=== PATIENT | female | born 1945 | race Caucasian/White ===

== ENCOUNTER 2017-12-12 09:39 | Day surgery (SDC) | payer MEDICARE, OTHER ==
[~2017-12-12] VITALS: Ht 160 cm; Wt 83.9 kg
[~2017-12-12 09:39] MED LIST: CLOB.05TO TOP; DIAZ5 PO; ELFOLATE7.5 MG PO; ESCI10 PO; GABA300 PO; HYDR1TAB94 PO; Hair, Skin & N1 EACH PO; LAMO100 PO; LIOT5 PO; MELA3 PO; MINO100 PO; NORT10 PO; Prozac20 MG PO; SYNTHROID112 MCG PO; VITAMIN D32000 UNIT PO; ZOLP5 PO
== END 2017-12-12 23:00 | disposition home or self-care (01) ==
LOC: ORSCMMR 09:39
PROVIDERS: Surgery
PROC: 0HBU0ZZ Excision of Left Breast, Open Approach (ICD-10-PCS; principal; 2017-12-12 12:15)
DX: L72.3 Sebaceous cyst (principal); E03.9 Hypothyroidism, unspecified; Z79.899 Other long term (current) drug therapy
CPT/HCPCS: 88304; J0330; J0690; J1100; J2250; J2405; J3010; J7120

== ENCOUNTER 2018-08-14 07:11 | Day surgery (SDC) | payer MEDICARE, OTHER | END 2018-08-14 09:38 | disposition home or self-care (01) | LOC: ORSCSDS 07:11 | PROVIDERS: Surgery | PROC: 0DJD8ZZ Inspection of Lower Intestinal Tract, Via Natural or Artificial Opening Endoscopic (ICD-10-PCS; principal; 2018-08-14 08:30) | DX: Z12.11 Encounter for screening for malignant neoplasm of colon (principal); F31.9 Bipolar disorder, unspecified; I10 Essential (primary) hypertension; E03.9 Hypothyroidism, unspecified; F41.8 Other specified anxiety disorders; E66.01 Morbid (severe) obesity due to excess calories; Z68.36 Body mass index [BMI] 36.0-36.9, adult; Z79.82 Long term (current) use of aspirin; Z79.899 Other long term (current) drug therapy | CPT/HCPCS: J7120 ==

== ENCOUNTER → 2019-02-03 | Outpatient (CLI) | payer MEDICARE, OTHER | END | disposition home or self-care (01) | LOC: LAB SHORT 10:42 → LAB 10:42 | DX: L02.212 Cutaneous abscess of back [any part, except buttock and flank] (principal); L08.0 Pyoderma | CPT/HCPCS: 87070; 87077; 87147; 87186; 87205 ==

== ENCOUNTER → 2019-03-27 | Outpatient (CLI) | payer MEDICARE, OTHER ==
[2019-03-27 15:20] LABS: Appearance, Urine Hazy (Clear); Bilirubin, Urine Neg (Neg); Blood, Urine Neg (Neg); Color, Urine Yellow (P-Yellow); Glucose Qualitative, Urine Neg (Neg); Ketones, Urine Neg (Neg); Leukocyte Esterase, Urine 3+ (Neg); Nitrite, Urine Neg (Neg); Protein, Urine Neg (Neg); Urobilinogen, Urine NORM (Normal)
[2019-03-27 15:37] LABS: Red Blood Cells, Urine 0-2 /hpf (0-2)
[2019-03-27 15:38] LABS: Bacteria Few /hpf; Squamous Epithelial Cells Mod /hpf (Few)
== END | disposition home or self-care (01) ==
LOC: LAB 14:20 → LAB SHORT 14:20
PROVIDERS: Internal Medicine
DX: R30.0 Dysuria (principal)
CPT/HCPCS: 81001; 87086

== ENCOUNTER → 2019-05-21 | Outpatient (CLI) | payer MEDICARE, OTHER | END | disposition home or self-care (01) | LOC: LAB SHORT 15:55 → LAB 15:55 | DX: R30.0 Dysuria (principal) | CPT/HCPCS: 87086 ==

== ENCOUNTER 2021-02-28 09:52 | Emergency (ER) | payer MEDICARE, OTHER ==
[~2021-02-28] VITALS: Ht 162.6 cm; Wt 90.7 kg
[2021-02-28 10:33] LABS: Source, Urine Clean Catch
[2021-02-28 10:39] LABS: BASOPHILS ABSOLUTE AUTO 0.05 K/mm3 (0.00-0.23); BASOPHILS PERCENT AUTO 1 % (0-2); EOSINOPHILS ABSOLUTE AUTO 0.12 K/mm3 (0.00-0.68); EOSINOPHILS PERCENT AUTO 1 % (0-6); Hemoglobin 13.8 g/dL (11.5-16.0); IMMATURE GRAN ABSOLUTE AUTO 0.03 K/mm3 (0.00-0.10); IMMATURE GRAN PERCENT AUTO 0 % (0-1); LYMPHOCYTES ABSOLUTE AUTO 1.62 K/mm3 (0.84-5.20); LYMPHOCYTES PERCENT AUTO 16 % (21-46); MONOCYTES PERCENT AUTO 6 % (4-13); Mean Corpuscular HGB 29.9 pg (26.0-34.0); Mean Corpuscular HGB Conc 33.7 g/dL (31.5-36.5); Mean Corpuscular Volume 89 fL (80-100); Mean Platelet Volume 9.8 fL (9.1-12.4); NEUTROPHILS PERCENT AUTO 76 % (41-73); Platelet Count 210 K/mm3 (150-400); RDW Coefficient Variation 12.9 % (11.7-14.2); RDW Standard Deviation 41.8 fL (35.1-46.3); Red Blood Cell Count 4.61 M/mm3 (3.80-5.20); White Blood Cell Count 10.22 K/mm3 (4.00-11.30)
[2021-02-28 10:44] LABS: Appearance, Urine Clear (Clear); Bilirubin, Urine Neg (Neg); Blood, Urine Neg (Neg); Color, Urine Yellow (P-Yellow); Glucose Qualitative, Urine Neg (Neg); Ketones, Urine Neg (Neg); Leukocyte Esterase, Urine Neg (Neg); Nitrite, Urine Neg (Neg); Protein, Urine Neg (Neg); Specific Gravity, Urine 1.025 (1.003-1.022); Urobilinogen, Urine NORM (Normal)
[2021-02-28 11:02] LABS: Alanine Aminotransfer (ALT/SGP 20 U/L (12-78); Albumin, Blood 2.9 g/dL (3.4-5.0); Albumin/Globulin Ratio 0.7 (0.8-1.8); Alk Phos 61 U/L (50-136); Anion Gap 7 mmol/L (6-16); Aspartate Aminotrans (AST/SGOT 15 U/L (12-37); Bilirubin, Total 0.3 mg/dL (0.1-1.0); Blood Urea Nitrogen 16 mg/dL (8-24); Bun/Creatinine Ratio 12.6 (12.0-20.0); CO2, Blood 22 mmol/L (21-32); Calcium, Blood 8.6 mg/dL (8.5-10.1); Chloride, Blood 114 mmol/L (98-108); Creatinine, Blood 1.27 mg/dL (0.40-1.00); Glomerular Filtration Rate 41 (60-); Glucose, Blood 110 mg/dL (70-99); Potassium, Blood 4.3 mmol/L (3.5-5.5); Sodium, Blood 143 mmol/L (136-145); Total Protein, Blood 6.9 g/dL (6.4-8.2); Troponin I <0.015 ng/mL (0.000-0.040)
[2021-02-28 14:24] LABS: Free Thyroxine 0.89 ng/dL (0.70-1.60); Thyroid Stimulating Hormone 0.009 uIU/mL (0.360-4.800); Triiodothyronine, Free 3.28 pg/mL (2.18-3.98)
== END 2021-02-28 15:03 | disposition home or self-care (01) ==
LOC: ER 09:52
PROVIDERS: Emergency Medicine
DX: E86.0 Dehydration (principal); Z88.8 Allergy status to other drugs, medicaments and biological substances; Z79.899 Other long term (current) drug therapy
CPT/HCPCS: 51701; 71045; 80053; 81003; 83880; 84439; 84443; 84481; 84484; 85025; 93005; 93010; 99285-25; J7030

== ENCOUNTER 2021-05-02 00:18 | Emergency (ER) | payer MEDICARE, OTHER ==
[~2021-05-02] VITALS: Ht 162.6 cm; Wt 90.7 kg
[2021-05-02 00:41] LABS: BASOPHILS ABSOLUTE AUTO 0.03 K/mm3 (0.00-0.23); BASOPHILS PERCENT AUTO 0 % (0-2); EOSINOPHILS ABSOLUTE AUTO 0.13 K/mm3 (0.00-0.68); EOSINOPHILS PERCENT AUTO 2 % (0-6); Hematocrit 43.2 % (33.0-51.0); Hemoglobin 14.5 g/dL (11.5-16.0); IMMATURE GRAN ABSOLUTE AUTO 0.02 K/mm3 (0.00-0.10); IMMATURE GRAN PERCENT AUTO 0 % (0-1); LYMPHOCYTES ABSOLUTE AUTO 2.19 K/mm3 (0.84-5.20); LYMPHOCYTES PERCENT AUTO 32 % (21-46); MONOCYTES ABSOLUTE AUTO 0.57 K/mm3 (0.16-1.47); MONOCYTES PERCENT AUTO 8 % (4-13); Mean Corpuscular HGB 29.5 pg (26.0-34.0); Mean Corpuscular HGB Conc 33.6 g/dL (31.5-36.5); Mean Corpuscular Volume 88 fL (80-100); Mean Platelet Volume 9.8 fL (9.1-12.4); NEUTROPHILS ABSOLUTE AUTO 3.88 K/mm3 (1.96-9.15); NEUTROPHILS PERCENT AUTO 57 % (41-73); Platelet Count 235 K/mm3 (150-400); RDW Coefficient Variation 13.2 % (11.7-14.2); RDW Standard Deviation 42.4 fL (35.1-46.3); Red Blood Cell Count 4.92 M/mm3 (3.80-5.20); White Blood Cell Count 6.82 K/mm3 (4.00-11.30)
[2021-05-02 01:00] LABS: Alanine Aminotransfer (ALT/SGP 25 U/L (12-78); Albumin, Blood 3.1 g/dL (3.4-5.0); Albumin/Globulin Ratio 0.8 (0.8-1.8); Alk Phos 65 U/L (50-136); Anion Gap 8 mmol/L (6-16); Aspartate Aminotrans (AST/SGOT 19 U/L (12-37); Bilirubin, Total 0.3 mg/dL (0.1-1.0); Blood Urea Nitrogen 17 mg/dL (8-24); Bun/Creatinine Ratio 12.3 (12.0-20.0); CO2, Blood 22 mmol/L (21-32); Calcium, Blood 8.9 mg/dL (8.5-10.1); Chloride, Blood 111 mmol/L (98-108); Creatinine, Blood 1.38 mg/dL (0.40-1.00); Globulin, Blood 4.1 g/dL (2.2-4.0); Glomerular Filtration Rate 37 (60-); Glucose, Blood 125 mg/dL (70-99); Potassium, Blood 3.8 mmol/L (3.5-5.5); Sodium, Blood 141 mmol/L (136-145); Total Protein, Blood 7.2 g/dL (6.4-8.2); Troponin I <0.015 ng/mL (0.000-0.040)
[2021-05-02 01:53] LABS: Source, Urine Clean Catch
[2021-05-02 01:54] LABS: Bilirubin, Urine Neg (Neg); Blood, Urine Neg (Neg); Glucose Qualitative, Urine Neg (Neg); Ketones, Urine Neg (Neg); Leukocyte Esterase, Urine Neg (Neg); Nitrite, Urine Neg (Neg); Protein, Urine Neg (Neg); Specific Gravity, Urine 1.015 (1.003-1.022); Urobilinogen, Urine NORM (Normal)
[2021-05-02 01:55] LABS: Appearance, Urine Clear (Clear); Color, Urine Yellow (P-Yellow)
== END 2021-05-02 03:00 | disposition home or self-care (01) ==
LOC: ER 00:18
PROVIDERS: Emergency Medicine
DX: R53.1 Weakness (principal); E03.9 Hypothyroidism, unspecified; Z88.8 Allergy status to other drugs, medicaments and biological substances; Z79.899 Other long term (current) drug therapy
CPT/HCPCS: 51701; 80053; 81003; 83690; 84484; 85025; 93005; 93010; 99285-25

== ENCOUNTER 2021-07-07 20:16 | Inpatient (IN) | payer MEDICARE, OTHER ==
[~2021-07-07] VITALS: Ht 154.9 cm; Wt 88.3 kg
[2021-07-07 21:11] LABS: Source, Urine Catheter
[2021-07-07 21:13] LABS: Bilirubin, Urine Neg (Neg); Blood, Urine 2+ (Neg); Glucose Qualitative, Urine Neg (Neg); Ketones, Urine Neg (Neg); Leukocyte Esterase, Urine Neg (Neg); Nitrite, Urine Neg (Neg); Protein, Urine 1+ (Neg); Urobilinogen, Urine NORM (Normal)
[2021-07-07 21:26] LABS: Appearance, Urine Clear (Clear); Color, Urine Yellow (P-Yellow)
[2021-07-07 21:27] LABS: Amorphous Light (0-Heavy); Bacteria Few /hpf; Red Blood Cells, Urine Rare /hpf (0-2); Squamous Epithelial Cells Rare /hpf (Few); White Blood Cells, Urine Not Seen /hpf (0-5)
[2021-07-07 22:29] LABS: Albumin, Blood 2.7 g/dL (3.4-5.0); Albumin/Globulin Ratio 0.7 (0.8-1.8); Bilirubin, Total 0.9 mg/dL (0.1-1.0); Bun/Creatinine Ratio 14.4 (12.0-20.0); Calcium, Blood 8.6 mg/dL (8.5-10.1); Creatinine, Blood 1.53 mg/dL (0.40-1.00); Globulin, Blood 3.9 g/dL (2.2-4.0); Potassium, Blood 4.3 mmol/L (3.5-5.5); Total Protein, Blood 6.6 g/dL (6.4-8.2); Troponin I 0.046 ng/mL (0.000-0.040)
[2021-07-07 23:13] LABS: BASOPHILS ABSOLUTE AUTO 0.06 K/mm3 (0.00-0.23); BASOPHILS PERCENT AUTO 1 % (0-2); EOSINOPHILS ABSOLUTE AUTO 0.17 K/mm3 (0.00-0.68); EOSINOPHILS PERCENT AUTO 2 % (0-6); Hematocrit 40.5 % (33.0-51.0); Hemoglobin 13.6 g/dL (11.5-16.0); IMMATURE GRAN ABSOLUTE AUTO 0.16 K/mm3 (0.00-0.10); IMMATURE GRAN PERCENT AUTO 2 % (0-1); LYMPHOCYTES PERCENT AUTO 20 % (21-46); MONOCYTES ABSOLUTE AUTO 0.91 K/mm3 (0.16-1.47); MONOCYTES PERCENT AUTO 9 % (4-13); Mean Corpuscular HGB 29.8 pg (26.0-34.0); Mean Corpuscular HGB Conc 33.6 g/dL (31.5-36.5); Mean Corpuscular Volume 89 fL (80-100); NEUTROPHILS ABSOLUTE AUTO 6.94 K/mm3 (1.96-9.15); NEUTROPHILS PERCENT AUTO 68 % (41-73); NRBC ABSOLUTE 0.03 K/mm3 (0.00-0.02); NRBC Auto 0.3 /100 WBC (0.0-0.2); RDW Coefficient Variation 13.4 % (11.7-14.2); RDW Standard Deviation 43.3 fL (35.1-46.3); Red Blood Cell Count 4.56 M/mm3 (3.80-5.20); White Blood Cell Count 10.24 K/mm3 (4.00-11.30)
[2021-07-08 00:51] LABS: Influenza A, PCR NEGATIVE (NEGATIVE); Influenza B, PCR NEGATIVE (NEGATIVE); Resp Syncytial Virus, PCR NEGATIVE (NEGATIVE); SARS-Cov-2 (COVID-19) PCR, MMC NEGATIVE (NEGATIVE)
[2021-07-08 01:40] LABS: Free Thyroxine 1.21 ng/dL (0.70-1.60)
--- NOTE | 2021-07-08 06:16 | NUR ---
SHIFTSUMMARY PT RECEIVED FROM ER A&0X3, ADMITTED FOR SEVERE WEAKNESS.DURING LAB WORKUP TROPONIN WAS FOUND SLIGHLTLY ELEVATED.NO SIGN OF DISTRESS NOTED. PT DENIES ANY CHEST PAIN. FALL PRECAUTION IN PLACE. BED IN LOWER POSITION,CALL LIGHT IN REACH. WILL CONTINUE TO MONITOR UNTIL DAY SHIFT.
[2021-07-08 06:23] LABS: BASOPHILS ABSOLUTE AUTO 0.04 K/mm3 (0.00-0.23); BASOPHILS PERCENT AUTO 0 % (0-2); EOSINOPHILS ABSOLUTE AUTO 0.22 K/mm3 (0.00-0.68); EOSINOPHILS PERCENT AUTO 2 % (0-6); Hematocrit 38.6 % (33.0-51.0); Hemoglobin 13.1 g/dL (11.5-16.0); IMMATURE GRAN ABSOLUTE AUTO 0.04 K/mm3 (0.00-0.10); IMMATURE GRAN PERCENT AUTO 0 % (0-1); LYMPHOCYTES ABSOLUTE AUTO 2.56 K/mm3 (0.84-5.20); LYMPHOCYTES PERCENT AUTO 26 % (21-46); MONOCYTES ABSOLUTE AUTO 1.08 K/mm3 (0.16-1.47); MONOCYTES PERCENT AUTO 11 % (4-13); Mean Corpuscular HGB 29.6 pg (26.0-34.0); Mean Corpuscular HGB Conc 33.9 g/dL (31.5-36.5); Mean Corpuscular Volume 87 fL (80-100); Mean Platelet Volume 11.4 fL (9.1-12.4); NEUTROPHILS ABSOLUTE AUTO 6.09 K/mm3 (1.96-9.15); NEUTROPHILS PERCENT AUTO 61 % (41-73); RDW Coefficient Variation 13.2 % (11.7-14.2); RDW Standard Deviation 42.4 fL (35.1-46.3); Red Blood Cell Count 4.42 M/mm3 (3.80-5.20); White Blood Cell Count 10.03 K/mm3 (4.00-11.30)
[2021-07-08 06:48] LABS: Albumin, Blood 2.7 g/dL (3.4-5.0); Albumin/Globulin Ratio 0.7 (0.8-1.8); Bilirubin, Total 1.1 mg/dL (0.1-1.0); Bun/Creatinine Ratio 16.8 (12.0-20.0); Calcium, Blood 8.2 mg/dL (8.5-10.1); Creatinine, Blood 1.31 mg/dL (0.40-1.00); Globulin, Blood 4.1 g/dL (2.2-4.0); Potassium, Blood 3.7 mmol/L (3.5-5.5); Total Protein, Blood 6.8 g/dL (6.4-8.2)
[2021-07-08 07:01] LABS: Platelet Count 57 K/mm3 (150-400); Troponin I 0.035 ng/mL (0.000-0.040)
[2021-07-08 07:21] LABS: Thyroid Stimulating Hormone 0.009 uIU/mL (0.360-4.800)
[2021-07-08 09:12] LABS: Free Thyroxine 1.16 ng/dL (0.70-1.60); Thyroxine (T4) 10.3 ug/dL (4.8-13.9); Triiodothyronine, Free 1.82 pg/mL (2.18-3.98)
--- NOTE | 2021-07-08 11:04 | NUR ---
CALL PLACED TWICE TO THIS PATIENT SPOUSE TO VERIFY/CLARIFY HOME MED. LEFT VOICEMAIL. AWAITING FOR CALL BACK FROM SPOUSE
--- NOTE | 2021-07-08 11:51 | NUR ---
Echocardiogram completed.
[2021-07-08 14:22] LABS: BASOPHILS ABSOLUTE AUTO 0.04 K/mm3 (0.00-0.23); BASOPHILS PERCENT AUTO 1 % (0-2); EOSINOPHILS ABSOLUTE AUTO 0.11 K/mm3 (0.00-0.68); EOSINOPHILS PERCENT AUTO 1 % (0-6); Hematocrit 40.7 % (33.0-51.0); Hemoglobin 13.6 g/dL (11.5-16.0); IMMATURE GRAN ABSOLUTE AUTO 0.04 K/mm3 (0.00-0.10); IMMATURE GRAN PERCENT AUTO 1 % (0-1); LYMPHOCYTES ABSOLUTE AUTO 1.86 K/mm3 (0.84-5.20); LYMPHOCYTES PERCENT AUTO 21 % (21-46); MONOCYTES ABSOLUTE AUTO 0.61 K/mm3 (0.16-1.47); MONOCYTES PERCENT AUTO 7 % (4-13); Mean Corpuscular HGB 29.4 pg (26.0-34.0); Mean Corpuscular HGB Conc 33.4 g/dL (31.5-36.5); Mean Corpuscular Volume 88 fL (80-100); Mean Platelet Volume 11.4 fL (9.1-12.4); NEUTROPHILS ABSOLUTE AUTO 6.21 K/mm3 (1.96-9.15); NEUTROPHILS PERCENT AUTO 70 % (41-73); Platelet Count 55 K/mm3 (150-400); RDW Coefficient Variation 13.2 % (11.7-14.2); RDW Standard Deviation 42.3 fL (35.1-46.3); Red Blood Cell Count 4.63 M/mm3 (3.80-5.20); White Blood Cell Count 8.87 K/mm3 (4.00-11.30)
[2021-07-08 14:55] LABS: CPK Creatine Kinase 103 U/L (26-193); Troponin I <0.015 ng/mL (0.000-0.040)
--- NOTE | 2021-07-08 18:21 | NUR ---
HEPARIN ORDERED FOR THIS PATIENT.MISSING DOSE. CALL PLACED TO PHARMACY , SPOKE WITH DONNIE WHO STATED THAT THEY ARE WAITING ON PATIENT LABS. AWAITING FOR PRX TO START MED
[2021-07-08 18:31] LABS: Hematocrit 38.7 % (33.0-51.0)
[2021-07-08 18:40] LABS: Anti-Xa UFH, PHA Monitoring <0.10 IU/mL; International Normalized Ratio 1.54; Prothrombin Time Results 15.7 Sec (9.7-11.5)
--- NOTE | 2021-07-08 18:54 | NUR ---
PT IS BEING TX TO PCU.REPORT GIVEN TO NURSE EVANS Dowling
--- NOTE | 2021-07-08 19:33 | NUR ---
PT A/O X1-2. NO SIGNS OF ACUTE DISTRESS. PT EATS WELL BY HERSELF BUT COMPLAINED OF FEELING TIRED. IN THE ROOM. BLADDER SCAN SHOWS 469. CALL PLACED TO PROVIDER , LEFT VOICEMAIL. ENTERPRISE INTEGRATION ARCHITECT NURSE NOTIFIED. REPORT GIVEN TO PCU NURSE. PT IS BEING TRANSFERRED TO PCU FOR FURTHER MONITORING
--- NOTE | 2021-07-08 20:39 | NUR ---
ASSUMED CARE OF PATIENT AT APPROXIMATELY 195 FROM MEDICAL FLOOR SORAYA TURCIOS. PATIENT ARRIVED VIA STRETCHER AND BEDS SWITCHED OUT. PATIENT VERY WEAK, PALE, COOL TO TOUCH, SPEAKS IN ONE TO THREE WORD SENTENCES. OFF BY ONE DAY ON DATE BUT ABLE TO STATE EVENT, LOCATION, NAME AND . SR ON TELE; OXYGEN SATURATATION ABOVE 90% ON ROOM AIR. 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 HEPARIN GTT PER ORDER. REPORTS BLADDER SCAN ON MEDICAL AND REPORTS HER BLADDER WAS FULL; PATIENT ABLE TO VOID ONTO BEDPAN 500; ATTENDS IN PLACE; MALA URINE. PATIENT DENIES PAIN, NUMBNESS, TINGING, DIZZINESS AND NAUSEA.
[2021-07-09 01:35] LABS: BASOPHILS ABSOLUTE AUTO 0.02 K/mm3 (0.00-0.23); BASOPHILS PERCENT AUTO 0 % (0-2); EOSINOPHILS ABSOLUTE AUTO 0.25 K/mm3 (0.00-0.68); EOSINOPHILS PERCENT AUTO 3 % (0-6); Hematocrit 39.7 % (33.0-51.0); Hemoglobin 13.4 g/dL (11.5-16.0); IMMATURE GRAN ABSOLUTE AUTO 0.03 K/mm3 (0.00-0.10); IMMATURE GRAN PERCENT AUTO 0 % (0-1); LYMPHOCYTES ABSOLUTE AUTO 2.51 K/mm3 (0.84-5.20); LYMPHOCYTES PERCENT AUTO 31 % (21-46); MONOCYTES ABSOLUTE AUTO 0.74 K/mm3 (0.16-1.47); MONOCYTES PERCENT AUTO 9 % (4-13); Mean Corpuscular HGB 29.5 pg (26.0-34.0); Mean Corpuscular HGB Conc 33.8 g/dL (31.5-36.5); Mean Corpuscular Volume 87 fL (80-100); Mean Platelet Volume 11.8 fL (9.1-12.4); NEUTROPHILS ABSOLUTE AUTO 4.57 K/mm3 (1.96-9.15); NEUTROPHILS PERCENT AUTO 56 % (41-73); Platelet Count 63 K/mm3 (150-400); RDW Coefficient Variation 13.2 % (11.7-14.2); RDW Standard Deviation 41.7 fL (35.1-46.3); Red Blood Cell Count 4.54 M/mm3 (3.80-5.20); White Blood Cell Count 8.12 K/mm3 (4.00-11.30)
[2021-07-09 01:44] LABS: Albumin, Blood 2.6 g/dL (3.4-5.0); Anion Gap 7 mmol/L (6-16); Blood Urea Nitrogen 18 mg/dL (8-24); CO2, Blood 25 mmol/L (21-32); Calcium, Blood 8.8 mg/dL (8.5-10.1); Chloride, Blood 110 mmol/L (98-108); Creatinine, Blood 1.29 mg/dL (0.40-1.00); Glomerular Filtration Rate 40 (60-); Glucose, Blood 113 mg/dL (70-99); Potassium, Blood 3.6 mmol/L (3.5-5.5); Sodium, Blood 142 mmol/L (136-145)
--- NOTE | 2021-07-09 02:27 | NUR ---
PATIENT OXYGEN SATURATION DROPPED TO 87--88% ON ROOM AIR; 3 LPM NC FOR OXYGEN SATURATION OF 94-95%. HEPARIN INCREASED PER ORDER.
--- NOTE | 2021-07-09 05:35 | NUR ---
NO ACUTE CHANGES FROM LAST NOTE. PATIENT SLEPT ABOUT NINE HOURS LAST NIGHT.
--- NOTE | 2021-07-09 11:27 | NUR ---
BLADDER SCAN: PATIENT REFUSED BEDPAN TWICE THIS AM AND ATTENDS HAVE BEEN DRY. BLADDER SCAN MEASURED 747 ML. THIS RN CALLED DR. CABALLERO WITH THE RESULTS AND RECEIVED ORDER FOR HERNANDEZ.
[2021-07-09 12:30] LABS: Source, Urine Catheter
[2021-07-09 12:34] LABS: Appearance, Urine Clear (Clear); Bilirubin, Urine Neg (Neg); Color, Urine Yellow (P-Yellow); Glucose Qualitative, Urine Neg (Neg); Leukocyte Esterase, Urine 1+ (Neg); Nitrite, Urine Neg (Neg); Urobilinogen, Urine NORM (Normal)
[2021-07-09 12:39] LABS: Blood, Urine 2+ (Neg); Ketones, Urine 4+ (Neg); Protein, Urine 2+ (Neg)
[2021-07-09 12:51] LABS: Amorphous Light (0-Heavy); Bacteria Mod /hpf; Squamous Epithelial Cells Mod /hpf (Few)
--- NOTE | 2021-07-09 14:00 | NUR ---
LOOSE STOOLS: PATIENT HAD LOOSE STOOLS ON BED, FLOOR, AND BEDSIDE COMMODE. TRANSFER BACK TO BED REQUIRED TWO RNS, GAIT BELT, AND WALKER WITH A GREAT DEAL OF ENCOURAGEMENT AND EFFORT. STOOLS CONTAINED UNDIGESTED FOOD AND UNABSORBED PILLS.
--- NOTE | 2021-07-09 17:04 | NUR ---
ASSUMPTION OF CARE: RECEIVED PATIENT FROM ED AT 1600. PATIENT RECEIVED BED BATH ON ADMIT, HAS SCATTERED BRUISING ON BACK, BILATERAL KNEES TO SHINS, INNER THIGHS, BUTTOCKS, AND SCATTERED ON BOTH ARMS. PATIENT AGITATED AND PULLING AT IV. SEIZURE PRECAUTIONS IN PLACE AND SOFT WRIST RESTRAINTS ATTACHED TO BED. CIWA 7 AT 1630. FIANCE AT BEDSIDE COMFORTING PATIENT. PHARMACY CALLED AND STATED PATIENT WILL NEED A CENTRAL LINE FOR THE 3% SALINE DRIP. PATIENT CURRENTLY HAS A LEFT AC PERIPHERAL LINE. URINARY CATHETER WAS PLACED AND UA SENT TO LAB PER ORDERS. PATIENT AWAITING A BED IN ICU AND WILL TRANSFER WHEN ONE IS AVAILABLE.
--- NOTE | 2021-07-09 17:34 | NUR ---
PHARMACOLOGY CALL: RECEIVED CALL FROM NOHEMI IN PHARMACOLOGY HE WILL PUT IN A STAT LAB ORDER APTT LEVELS "ARE NOT BUDGING." MAKE SURE THEY ARE NOT TURNING OFF HEPARIN WHEN DRAWING.
--- NOTE | 2021-07-09 18:20 | NUR ---
SHIFT SUMMARY: PATIENT PLEASANTLY CONFUSED T/O SHIFT. STATED AT ONE POINT SHE BELIEVED SHE WAS IN A HOTEL IN [place] OR [place] AND WANTED TO KNOW WHEN SHE NEEDED TO CHECK OUT. PATIENT WAS REORIENTED TO SURROUNDINGS. PATIENT HAD CONSULTATION WITH DR. YEAGER (HEMATOLOGY) THIS AFTERNOON TO ASSESS RISK FACTORS FOR DVT AND MANAGEMENT. PHARMACY ADJUSTED HEPARIN DRIP FROM 26 U/KG/HR TO 30 U/KG/HR AT 1715 AND 3000U BOLUS WAS GIVEN PER EMAR. HAS BEEN AT BEDSIDE DURING VISITING HOURS AND REQUESTED TO STAY THROUGH SHIFT CHANGE. WILL REPORT TO NOC RN.
--- NOTE | 2021-07-09 19:10 | NUR ---
PATIENT'S LEFT A/C INFILTRATED WITH HEPARIN GTT; PHARMACY NOTIFED STOPPED AT 1950; ANNEALING OVEN OPERATOR NOTIFIED; CURRENTLY LOOKING FOR NEW IV ACCESS.
--- NOTE | 2021-07-09 19:45 | NUR ---
PG PLACED TO ELLIOT BY CARLA Miles RN AND HEPARIN GTT RESTARTED; PHARMACY NOTIFIED; KEEP CURRENT RATE PER ORDER.
--- NOTE | 2021-07-09 20:35 | NUR ---
ASSUMED CARE OF PATIENT AT APPROXIMATELY 1900 FROM REFUGIO Dowling RN. PATIENT WEAK, COOL TO TOUCH, SLOW TO RESPOND A TIMES. PATIENT ABLE TO STATE NAME, , AND LOCATION BUT UNABLE TO STATE DATE REPORTS JULY OF 2001; BEDSIDE AND REPORTS "SHE IS LIKE THIS AT TIMES". SR ON TELE; OXYGEN SATURATATION ABOVE 90% ON 3LPM VIA NC. HEPARIN GTT PER ORDER IN ELL[facility]OT PG; SEE PREVIOUS NOTES ABOUT INFILTRATION. PATIENT DENIES PAIN, NUMBNESS, TINGING, DIZZINESS AND NAUSEA. URINARY CATH DRAINING MALA COLORED URINE; ATTENDS IN PLACE.
--- NOTE | 2021-07-09 23:40 | NUR ---
HEPARIN GTT PLACED ON STANDBY BY PHARMACIST BINTA Fontenot DUE TO CRITICALLY HIGH ANTI-XA OF 1.32; WILL RESTART AT 0045 PER ORDER.
--- NOTE | 2021-07-10 06:25 | NUR ---
NO ACUTE CHANGES FROM LAST NOTE; SLEPT ABOUT SIX HOURS; CONFUSED MOST OF NIGHT; STATED SHE WAS GOING TO AMBULATED TO PEE; VERY WEAK AND HAS URINARY CATH IN PLACE.
[2021-07-10 07:41] LABS: BASOPHILS ABSOLUTE AUTO 0.04 K/mm3 (0.00-0.23); BASOPHILS PERCENT AUTO 1 % (0-2); EOSINOPHILS ABSOLUTE AUTO 0.23 K/mm3 (0.00-0.68); EOSINOPHILS PERCENT AUTO 3 % (0-6); Hematocrit 36.1 % (33.0-51.0); Hemoglobin 12.2 g/dL (11.5-16.0); IMMATURE GRAN ABSOLUTE AUTO 0.05 K/mm3 (0.00-0.10); IMMATURE GRAN PERCENT AUTO 1 % (0-1); LYMPHOCYTES ABSOLUTE AUTO 2.89 K/mm3 (0.84-5.20); LYMPHOCYTES PERCENT AUTO 34 % (21-46); MONOCYTES ABSOLUTE AUTO 0.72 K/mm3 (0.16-1.47); MONOCYTES PERCENT AUTO 9 % (4-13); Mean Corpuscular HGB 29.8 pg (26.0-34.0); Mean Corpuscular HGB Conc 33.8 g/dL (31.5-36.5); Mean Corpuscular Volume 88 fL (80-100); Mean Platelet Volume 11.2 fL (9.1-12.4); NEUTROPHILS ABSOLUTE AUTO 4.51 K/mm3 (1.96-9.15); NEUTROPHILS PERCENT AUTO 54 % (41-73); Platelet Count 86 K/mm3 (150-400); RDW Coefficient Variation 13.2 % (11.7-14.2); RDW Standard Deviation 42.6 fL (35.1-46.3); White Blood Cell Count 8.44 K/mm3 (4.00-11.30)
[2021-07-10 08:01] LABS: Albumin, Blood 2.3 g/dL (3.4-5.0); Anion Gap 8 mmol/L (6-16); Blood Urea Nitrogen 17 mg/dL (8-24); Bun/Creatinine Ratio 12.4 (12.0-20.0); CO2, Blood 24 mmol/L (21-32); Calcium, Blood 8.5 mg/dL (8.5-10.1); Chloride, Blood 111 mmol/L (98-108); Creatinine, Blood 1.37 mg/dL (0.40-1.00); Glomerular Filtration Rate 37 (60-); Glucose, Blood 99 mg/dL (70-99); Phosphorus, Blood 3.6 mg/dL (2.5-4.9); Potassium, Blood 3.9 mmol/L (3.5-5.5); Sodium, Blood 143 mmol/L (136-145)
--- NOTE | 2021-07-10 12:17 | NUR ---
[facility] CENTER CONSULT THIS AM: PATIENT IS NPO AND AWAITING PROCEDURE TO BREAK UP CLOT. HEPARIN WAS STOPPED PER PHARMACY.
--- NOTE | 2021-07-10 15:58 | NUR ---
PATIENT TRANSFER: PATIENT WAS BUMPED FOR AN EMERGENT PROCEDURE AND RETURNED TO ROOM 10 MINUTES AFTER LEAVING. SHE HAS JUST TRANSFERRED BACK TO THE FIELD TECH. TELE WAS NOTIFIED.
--- NOTE | 2021-07-10 18:50 | NUR ---
SHIFT SUMMARY: PATIENT ATE ALL OF BREAKFAST PRIOR TO HEART CONSULT. HEPARIN WAS D/C'D PER PHARMACY ~0900. PATIENT NPO AND STABLE ON UNIT. PATIENT RETURNED FROM BUMP GRADER OPERATOR AT 1830. RIGHT AND LEFT PE REMOVAL WAS SUCCESSFUL. DVT IN RIGHT LEG STILL PRESENT. KEEP FLAT. HER PULSE WAS GOOD T/O PROCEDURE WITH A FEW PVCS. SHE LOST "A LOT OF BLOOD" BUT AN EBL WAS NOT AVAILABLE. BOTH CLOTS WERE SUCCESSFULLY REMOVED. A STAT H&H WAS ORDERED AND SHE MAY NEED A TRANSFUSION PENDING RESULTS. HEPARIN WAS RESTARTED PER PHARMACY AT 18U/KG/HR. PATIENT RESTING FLAT IN BED WITH SPOUSE AT BEDSIDE. RN RECRUITMENT MET WITH PATIENT AND SPOUSE EARLIER TODAY. PLAN TO D/C TO SNF. WILL REPORT TO ANDREA LIRA.
[2021-07-10 19:20] LABS: Hematocrit 32.2 % (33.0-51.0); Hemoglobin 10.7 g/dL (11.5-16.0)
[2021-07-11 01:28] LABS: Hematocrit 30.1 % (33.0-51.0)
--- NOTE | 2021-07-11 01:31 | NUR ---
ASSUMED CARE OF PT AT 1900. A/OX4 WITH PERIODS OF CONFUSION. AT BEDSIDE. PATIENT'S BP BEGAN TO DROP TO 83/68 WITH MAP AROUND 65. PATIENT APPEARED VERY PALE WITH NO COLOR TO LIPS. ADMINISTERED 250ML BOLUS OF NS AND BP INCREASED TO 98/62 WITH MAP IN THE 70'S. STAT H&H WAS DONE WHICH SHOWED HGB OF 10.7, AND HCT OF 32.2. WAS NOTIFIED AND REPEAT H&H WAS ORDERED. AT 0100 WITH HGB OF 10.0 AND HCT 0F 30.1. AFTER BOLUS PATIENT BEGAN TO HAVE MORE COLOR IN HER SKIN AND LIPS. PATIENT COMPLAINS OF PAIN IN SHOULDER 02/11 THAT BEGAN AFTER THE PROCEDURE. LS CLEAR ON TOP AND DIM AT BASES. MAINTAINING ABOVE 92% ON 3L NC. TELEMETRY NSR AVG 70'S. +1 PEDAL/RADIAL PULSES BILATERALLY. HEPARIN INFUSING AT 18 UNITS/KG/HR. URINARY CATHETER DRAINING CLEAR/YELLOW URINE. WILL UPDATE WITH ANY CHANGES THAT OCCUR.
[2021-07-11 09:43] LABS: BASOPHILS ABSOLUTE AUTO 0.03 K/mm3 (0.00-0.23); BASOPHILS PERCENT AUTO 0 % (0-2); EOSINOPHILS ABSOLUTE AUTO 0.26 K/mm3 (0.00-0.68); EOSINOPHILS PERCENT AUTO 3 % (0-6); Hemoglobin 9.6 g/dL (11.5-16.0); IMMATURE GRAN ABSOLUTE AUTO 0.05 K/mm3 (0.00-0.10); IMMATURE GRAN PERCENT AUTO 1 % (0-1); LYMPHOCYTES ABSOLUTE AUTO 2.24 K/mm3 (0.84-5.20); LYMPHOCYTES PERCENT AUTO 26 % (21-46); MONOCYTES ABSOLUTE AUTO 0.58 K/mm3 (0.16-1.47); MONOCYTES PERCENT AUTO 7 % (4-13); Mean Corpuscular HGB 29.4 pg (26.0-34.0); Mean Corpuscular HGB Conc 33.1 g/dL (31.5-36.5); Mean Corpuscular Volume 89 fL (80-100); Mean Platelet Volume 10.9 fL (9.1-12.4); NEUTROPHILS ABSOLUTE AUTO 5.43 K/mm3 (1.96-9.15); NEUTROPHILS PERCENT AUTO 63 % (41-73); Platelet Count 120 K/mm3 (150-400); RDW Coefficient Variation 13.2 % (11.7-14.2); RDW Standard Deviation 42.1 fL (35.1-46.3); Red Blood Cell Count 3.27 M/mm3 (3.80-5.20); White Blood Cell Count 8.59 K/mm3 (4.00-11.30)
[2021-07-11 10:00] LABS: Anion Gap 4 mmol/L (6-16); Blood Urea Nitrogen 14 mg/dL (8-24); Bun/Creatinine Ratio 10.8 (12.0-20.0); CO2, Blood 24 mmol/L (21-32); Calcium, Blood 7.9 mg/dL (8.5-10.1); Chloride, Blood 115 mmol/L (98-108); Glomerular Filtration Rate 40 (60-); Glucose, Blood 96 mg/dL (70-99); Magnesium, Blood 2.3 mg/dL (1.6-2.4); Phosphorus, Blood 2.9 mg/dL (2.5-4.9); Potassium, Blood 4.2 mmol/L (3.5-5.5); Sodium, Blood 143 mmol/L (136-145)
--- NOTE | 2021-07-11 11:50 | NUR ---
UPDATE DURING AM ROUNDS PT STATED SHE WAS HAVING CP AT A 01/12. EKG DONE, PHYSICIAN NOTIFIED AND REFERRAL PLACED TO CARDIOLOGY. PT STATES CP GONE WITHIN MINUTES OF HAVING IT. ORDERS FROM CARDIOLOGY TO BOLUS 500 ML OF NS TO IMPROVE HYPOTENSION, THEN BOLUS 500 MORE IF STILL HYPOTENSIVE. PT HAS RECEIVED 2 500 ML BOLUSES OF NS THIS FAR. ORDERS TO HAVE FLUIDS RUNNING AT 150 ML/HR FOR 1, 1000 ML BAG. TRACTOR DRIVER TEAMSTER AT BEDSIDE TO DO ECHO. CARDIOLOGY TO CONSULT WITH INTERVENTIONALST REGARDING POTENTIALLY WAITING ON AFTERNOON PROCEDURE FOR DVT. MAP CONT TO REMAIN ABOVE 65. WILL CONT TO MONITOR.
--- NOTE | 2021-07-11 14:46 | NUR ---
PT TO HC PT BROUGHT BY BED WITH CHART, NC AT 4 L
--- NOTE | 2021-07-11 17:58 | NUR ---
SHIFT SUMMARY PT ALERT. FLAT AFFECT. CONFUSED ON DATE. PT WEAK. TURN Q 2 HRS. ORAL CARE PROVIDED WHEN NPO. VITAL SIGNS STABLE. OXYGEN SATURATION MAINTAINED ABOVE 92% ON 3-5 L OF OXYGEN VIA NC. PT REPORTED CP THIS AM. SEE NOTES. HR STABLE. BP HYPOTENSIVE AT TIMES. MAP REMAINED ABOVE 65. PT TO FOR PROCEDURE. R POPLITEAL SITE WNL. DRESSING C/D/I. POST OP VITALS STABLE. AT BEDSIDE. WILL CONT TO MONITOR UNTIL REPORT GIVEN TO NIGHTSHIFT RN.
--- NOTE | 2021-07-11 19:53 | NUR ---
UPDATE DR. SOLIS AT BEDSIDE. ORDERS TO RESUME HEPARIN GTT. PLAN TO TRANSITION TO PO ANTICOAGULANT IN AM. SITE WNL. PHARMACY NOTIFIED THAT HEPARIN GTT IS RESUMED.
[2021-07-12 02:39] LABS: BASOPHILS ABSOLUTE AUTO 0.03 K/mm3 (0.00-0.23); BASOPHILS PERCENT AUTO 0 % (0-2); EOSINOPHILS ABSOLUTE AUTO 0.25 K/mm3 (0.00-0.68); EOSINOPHILS PERCENT AUTO 3 % (0-6); Hematocrit 27.6 % (33.0-51.0); Hemoglobin 9.1 g/dL (11.5-16.0); IMMATURE GRAN ABSOLUTE AUTO 0.05 K/mm3 (0.00-0.10); IMMATURE GRAN PERCENT AUTO 1 % (0-1); LYMPHOCYTES ABSOLUTE AUTO 2.13 K/mm3 (0.84-5.20); LYMPHOCYTES PERCENT AUTO 26 % (21-46); MONOCYTES ABSOLUTE AUTO 0.59 K/mm3 (0.16-1.47); MONOCYTES PERCENT AUTO 7 % (4-13); Mean Corpuscular HGB 29.5 pg (26.0-34.0); Mean Corpuscular Volume 90 fL (80-100); Mean Platelet Volume 10.9 fL (9.1-12.4); NEUTROPHILS ABSOLUTE AUTO 5.24 K/mm3 (1.96-9.15); NEUTROPHILS PERCENT AUTO 63 % (41-73); Platelet Count 99 K/mm3 (150-400); RDW Coefficient Variation 13.3 % (11.7-14.2); RDW Standard Deviation 43.3 fL (35.1-46.3); Red Blood Cell Count 3.08 M/mm3 (3.80-5.20); White Blood Cell Count 8.29 K/mm3 (4.00-11.30)
[2021-07-12 03:00] LABS: Albumin, Blood 2.1 g/dL (3.4-5.0); Albumin/Globulin Ratio 0.6 (0.8-1.8); Bilirubin, Total 0.3 mg/dL (0.1-1.0); Bun/Creatinine Ratio 9.7 (12.0-20.0); Calcium, Blood 8.2 mg/dL (8.5-10.1); Creatinine, Blood 1.34 mg/dL (0.40-1.00); Globulin, Blood 3.3 g/dL (2.2-4.0); Phosphorus, Blood 2.5 mg/dL (2.5-4.9); Total Protein, Blood 5.4 g/dL (6.4-8.2)
--- NOTE | 2021-07-12 07:47 | NUR ---
SHIFT SUMMARY PT ALERT BUT CONFUSED AT TIMES. HR SR. MAINTAINING SATS OVER 95% ON 4L. HERNANDEZ DRAINING YELLOW URINE TO GRAVITY. Q2 TURNS. R FEMORAL SITE C/D/I. IN BED RESTING WITH CALL ALARM AT SIDE.
--- NOTE | 2021-07-12 17:13 | NUR ---
END OF SHIFT SUMMARY: PATIENT WAS S/P THROMBECTOMY OF THE A DVT IN THE RIGHT LEG, ACCESSED BY THE RIGHT POPITEAL. BLOOD PRESSURES AFTER A BOLUS THE PREVIOUS NIGHT IMPROVED, AND HAVE BEEN MILDY SOFT, HOWEVER, PATIENT HAS BEEN TIRED AFTER PT OT EVALUATION, NO SIGNS OF BLEEDING, SITE ON BOTH GROIN AND POPITEAL FREE OF BLEEDING. MENTATION IS ORIENTED AT TIMES WHILE SOME MILD CONFUSION AT OTHER TIMES, WHICH HAS NOT DETERIORATED BUT IMPROVED THE DAY GOES ON. AT THE BEDSIDE. CATHETER DRAINING TO GRAVITY, CLEAR AND YELLOW GREAT OUTPUT, . MAX ASSIST WHEN DOING Q 2 TURNS, HEPARIN THERAPUETIC NO CHANGES AFTER THE AFTERNOOON DRAW. NSR, DENIES ANY PAIN, O2 HAS BEEN TURNED DOWN FROM 5LPM TO 3LPM. DIM BASES, WILL CONTIUE TO MONITOR AT THIS TIME.
[2021-07-13 04:25] LABS: BASOPHILS ABSOLUTE AUTO 0.02 K/mm3 (0.00-0.23); BASOPHILS PERCENT AUTO 0 % (0-2); EOSINOPHILS PERCENT AUTO 3 % (0-6); Hematocrit 25.9 % (33.0-51.0); Hemoglobin 8.5 g/dL (11.5-16.0); IMMATURE GRAN ABSOLUTE AUTO 0.06 K/mm3 (0.00-0.10); IMMATURE GRAN PERCENT AUTO 1 % (0-1); LYMPHOCYTES ABSOLUTE AUTO 1.87 K/mm3 (0.84-5.20); LYMPHOCYTES PERCENT AUTO 28 % (21-46); MONOCYTES ABSOLUTE AUTO 0.51 K/mm3 (0.16-1.47); MONOCYTES PERCENT AUTO 8 % (4-13); Mean Corpuscular HGB 29.1 pg (26.0-34.0); Mean Corpuscular HGB Conc 32.8 g/dL (31.5-36.5); Mean Corpuscular Volume 89 fL (80-100); Mean Platelet Volume 10.4 fL (9.1-12.4); NEUTROPHILS ABSOLUTE AUTO 4.06 K/mm3 (1.96-9.15); NEUTROPHILS PERCENT AUTO 60 % (41-73); Platelet Count 144 K/mm3 (150-400); RDW Coefficient Variation 13.1 % (11.7-14.2); RDW Standard Deviation 42.5 fL (35.1-46.3); Red Blood Cell Count 2.92 M/mm3 (3.80-5.20); White Blood Cell Count 6.72 K/mm3 (4.00-11.30)
--- NOTE | 2021-07-13 05:35 | NUR ---
SHIFT SUMMARY PT IS ALERT WITH PERIODS OF CONFUSION. HEP GTT REMAINS WITHIN THERAPEUTIC RANGE, NO TITRATION NEEDED. Q2 HR TURNS PROVIDED, GABAPENTIN HELD LAST NIGHT DUE TO EXCESSIVE SLEEPINESS. VSS, RESP UNLABORED, O2 VIA NC @ 3L. HERNANDEZ PATENT, CLEAR YELLOW URINE NOTED. BOTH DRSG SITES DRY/INTACT. PT DENIES PAIN. BED IN LOW POSITION, CALL LIGHT IN REACH.
[2021-07-13 05:43] LABS: Albumin, Blood 2.3 g/dL (3.4-5.0); Anion Gap 5 mmol/L (6-16); Blood Urea Nitrogen 15 mg/dL (8-24); Bun/Creatinine Ratio 10.5 (12.0-20.0); CO2, Blood 26 mmol/L (21-32); Calcium, Blood 8.4 mg/dL (8.5-10.1); Chloride, Blood 113 mmol/L (98-108); Creatinine, Blood 1.43 mg/dL (0.40-1.00); Glomerular Filtration Rate 36 (60-); Glucose, Blood 94 mg/dL (70-99); Potassium, Blood 4.2 mmol/L (3.5-5.5); Sodium, Blood 144 mmol/L (136-145)
--- NOTE | 2021-07-13 08:46 | NUR ---
GAVE ELIQUIS AND D/C HEPARIN GTT PER ORDERS. TITRATED PT TO RA. SATING 94-96 ON RA.
--- NOTE | 2021-07-13 15:55 | NUR ---
Pt is lethargic mostly, but will wake up and be alert on and off. Flat affect. Oriented x2-3, disoriented to situation on and off and time. Heparin gtt d/c today and eliquis was started. Pt worked with PT and stood at edge of bed a couple times. Tremors present and pt says this is her baseline. VSS on RA-2L throughout the day, would desat at times when sleeping. Pt will d/c to SNF [facility]. Started bladder training pt at 1100, with intentions to d/c [facility] prior to d/c to SNF. Pt had small bowel movement today. Right groin site and right popliteal site are clean/dry and intact and no hematoma present. was at bedside this evening. Tele:
--- NOTE | 2021-07-13 20:28 | NUR ---
PATIENT IS ALERT AND ORIENATED, WITHDRAWN SLOW TO RESPOND, VITAL SIGNS STABLE AFEBRILE, CALL LIGHT WITHIN REACH, Q2 TURNS WITH MAX ASSIST, AT BEDSIDE, NATIONAL GUARD WHEELED HIM DOWN TO HIS CAR FOR ASSISTANCE. PATIENT IS STILL REQUIRING ONE LITER NC DROPS IN THE 88-89 ON RA, DRY COUGH NOTED, LUNG SOUNDS ARE CLEAR, ABDOMEN SOFT NONTENDER HYPOACTIVE BOWEL TONES, BLE +1 EDEMA, NO COMPLAINTS OF PAIN. WILL CONTINUE TO MONITOR.
[2021-07-14 04:32] LABS: Albumin, Blood 2.5 g/dL (3.4-5.0); Anion Gap 6 mmol/L (6-16); Blood Urea Nitrogen 17 mg/dL (8-24); Bun/Creatinine Ratio 12.4 (12.0-20.0); CO2, Blood 25 mmol/L (21-32); Calcium, Blood 8.6 mg/dL (8.5-10.1); Chloride, Blood 111 mmol/L (98-108); Creatinine, Blood 1.37 mg/dL (0.40-1.00); Glomerular Filtration Rate 37 (60-); Glucose, Blood 89 mg/dL (70-99); Phosphorus, Blood 2.3 mg/dL (2.5-4.9); Potassium, Blood 3.9 mmol/L (3.5-5.5); Sodium, Blood 142 mmol/L (136-145)
[2021-07-14 09:40] LABS: Hematocrit 28.8 % (33.0-51.0); Hemoglobin 9.6 g/dL (11.5-16.0)
[2021-07-14 11:52] LABS: Influenza A, PCR NEGATIVE (NEGATIVE); Influenza B, PCR NEGATIVE (NEGATIVE); Resp Syncytial Virus, PCR NEGATIVE (NEGATIVE); SARS-Cov-2 (COVID-19) PCR, MMC NEGATIVE (NEGATIVE)
[2021-07-14] MEDS ORDERED: LEVOTHYROXINE PO (12:16)
[2021-07-14] MEDS ORDERED: LIOT5 PO (12:17)
[2021-07-14] MEDS ORDERED: ELIQUIS5 M2 PO (12:20)
[2021-07-14] MEDS ORDERED: ONDA4ODT MM (12:21)
[2021-07-14] MEDS ORDERED: LAMO100 PO (12:27)
--- NOTE | 2021-07-14 18:01 | NUR ---
TRANSFER UPDATE PT LEFT UNIT AT 1443 VIA WHEELCHAIR OCCOMPANIED BY TRANSPORT STAFF MEMBER. PT ON 1L NC WHEN TRANSPORT ARRIVED, ROOM AIR FOR TRANSPORT TO VEHICLE WHERE PT WILL GO ON 1L IF NEEDED. PT CHARTS TRANSFERED WITH PT. REPORT GIVEN TO [employer] NURSE AT 1866.
== END 2021-07-14 14:43 | DRG 163 ==
LOC: ER 20:16 → MEDS 20:17 → PCU 07-08 16:51
PROVIDERS: Family Medicine; Internal Medicine; Pharmacist; Physician Assistant; Radiology Diagnostic Radiology; ADMIT Internal Medicine
PROC: 02CR3ZZ Extirpation of Matter from Left Pulmonary Artery, Percutaneous Approach (ICD-10-PCS; principal; 2021-07-10)
PROC: 02CQ3ZZ Extirpation of Matter from Right Pulmonary Artery, Percutaneous Approach (ICD-10-PCS; 2021-07-10)
PROC: 02CP3ZZ Extirpation of Matter from Pulmonary Trunk, Percutaneous Approach (ICD-10-PCS; 2021-07-10)
PROC: B31T1ZZ Fluoroscopy of Left Pulmonary Artery using Low Osmolar Contrast (ICD-10-PCS; 2021-07-10)
PROC: B31U1ZZ Fluoroscopy of Pulmonary Trunk using Low Osmolar Contrast (ICD-10-PCS; 2021-07-10)
PROC: B31S1ZZ Fluoroscopy of Right Pulmonary Artery using Low Osmolar Contrast (ICD-10-PCS; 2021-07-10)
PROC: 04CM3ZZ Extirpation of Matter from Right Popliteal Artery, Percutaneous Approach (ICD-10-PCS; 2021-07-11)
PROC: 04CK3ZZ Extirpation of Matter from Right Femoral Artery, Percutaneous Approach (ICD-10-PCS; 2021-07-11)
PROC: B51B1ZZ Fluoroscopy of Right Lower Extremity Veins using Low Osmolar Contrast (ICD-10-PCS; 2021-07-11)
DX: I26.92 Saddle embolus of pulmonary artery without acute cor pulmonale (principal); J96.01 Acute respiratory failure with hypoxia; I82.431 Acute embolism and thrombosis of right popliteal vein; I82.411 Acute embolism and thrombosis of right femoral vein; I82.451 Acute embolism and thrombosis of right peroneal vein; I82.441 Acute embolism and thrombosis of right tibial vein; I24.8 Other forms of acute ischemic heart disease; N17.9 Acute kidney failure, unspecified; Z20.822 Contact with and (suspected) exposure to COVID-19; E86.0 Dehydration; E77.8 Other disorders of glycoprotein metabolism; R62.7 Adult failure to thrive; D69.6 Thrombocytopenia, unspecified; G25.2 Other specified forms of tremor; R33.9 Retention of urine, unspecified; Z68.23 Body mass index [BMI] 23.0-23.9, adult; I95.9 Hypotension, unspecified; N18.30 Chronic kidney disease, stage 3 unspecified; E03.9 Hypothyroidism, unspecified; F32.A Depression, unspecified; Z88.8 Allergy status to other drugs, medicaments and biological substances; Z79.899 Other long term (current) drug therapy; Z90.49 Acquired absence of other specified parts of digestive tract; Z90.710 Acquired absence of both cervix and uterus; Z98.890 Other specified postprocedural states
CPT/HCPCS: 0241U; 36015; 36415; 37184; 37185; 37187; 37252; 71045; 71260; 75743; 75820; 75825; 76937; 80053; 80069; 80400; 81001; 82533; 82550; 83735; 83880; 84100; 84145; 84436; 84439; 84443; 84481; 84484; 85014; 85018; 85025; 85347; 85520; 85610; 85651; 86141; 87086; 93005; 93010; 93306; 93970; 96372; 97110; 97161; 97166; 97530; 97535; 99152; 99153; 99285-25; A9270; C1751; C1753; C1757; C1769; C1887; C1894; G0378; J0834; J1644; J2250; J3010; J7030; J7040; J7050; Q9967

== ENCOUNTER → 2021-12-01 | Outpatient (CLI) | payer MEDICARE, OTHER ==
[~2021-12-01] MED LIST changes: +ELIQUIS5 M2 PO; +LEVOTHYROXINE PO; +ONDA4ODT MM
[2021-12-01 11:54] LABS: Hematocrit 44.9 % (33.0-51.0); Hemoglobin 14.5 g/dL (11.5-16.0); Mean Corpuscular HGB 26.9 pg (26.0-34.0); Mean Corpuscular HGB Conc 32.3 g/dL (31.5-36.5); Mean Corpuscular Volume 83 fL (80-100); Mean Platelet Volume 10.2 fL (9.1-12.4); Platelet Count 232 K/mm3 (150-400); RDW Coefficient Variation 16.9 % (11.7-14.2); RDW Standard Deviation 51.5 fL (35.1-46.3); White Blood Cell Count 6.71 K/mm3 (4.00-11.30)
[2021-12-01 12:02] LABS: Albumin, Blood 3.3 g/dL (3.4-5.0); Albumin/Globulin Ratio 0.9 (0.8-1.8); Bilirubin, Total 0.5 mg/dL (0.1-1.0); Bun/Creatinine Ratio 11.6 (12.0-20.0); Calcium, Blood 8.9 mg/dL (8.5-10.1); Creatinine, Blood 1.21 mg/dL (0.40-1.00); Globulin, Blood 3.7 g/dL (2.2-4.0); Potassium, Blood 4.1 mmol/L (3.5-5.5)
== END | disposition home or self-care (01) ==
LOC: LAB UVN 09:50 → EDSTATUS 14:56
PROVIDERS: Internal Medicine
DX: R39.9 Unspecified symptoms and signs involving the genitourinary system (principal)
CPT/HCPCS: 80053; 85027

== ENCOUNTER → 2022-01-22 | Outpatient (CLI) | payer MEDICARE, OTHER ==
[2022-01-22 08:48] LABS: BASOPHILS ABSOLUTE AUTO 0.03 K/mm3 (0.00-0.23); BASOPHILS PERCENT AUTO 0 % (0-2); EOSINOPHILS ABSOLUTE AUTO 0.24 K/mm3 (0.00-0.68); EOSINOPHILS PERCENT AUTO 3 % (0-6); Hematocrit 38.7 % (33.0-51.0); Hemoglobin 12.9 g/dL (11.5-16.0); IMMATURE GRAN ABSOLUTE AUTO 0.04 K/mm3 (0.00-0.10); IMMATURE GRAN PERCENT AUTO 1 % (0-1); LYMPHOCYTES PERCENT AUTO 35 % (21-46); MONOCYTES ABSOLUTE AUTO 0.54 K/mm3 (0.16-1.47); MONOCYTES PERCENT AUTO 7 % (4-13); Mean Corpuscular HGB 28.9 pg (26.0-34.0); Mean Corpuscular HGB Conc 33.3 g/dL (31.5-36.5); Mean Corpuscular Volume 87 fL (80-100); Mean Platelet Volume 10.8 fL (9.1-12.4); NEUTROPHILS PERCENT AUTO 53 % (41-73); Platelet Count 239 K/mm3 (150-400); RDW Coefficient Variation 14.3 % (11.7-14.2); RDW Standard Deviation 45.4 fL (35.1-46.3); Red Blood Cell Count 4.46 M/mm3 (3.80-5.20); White Blood Cell Count 7.35 K/mm3 (4.00-11.30)
[2022-01-22 08:55] LABS: Thyroxine (T4) 8.5 ug/dL (4.8-13.9)
[2022-01-22 09:32] LABS: Albumin, Blood 2.6 g/dL (3.4-5.0); Albumin/Globulin Ratio 0.7 (0.8-1.8); Bilirubin, Total 0.2 mg/dL (0.1-1.0); Calcium, Blood 8.5 mg/dL (8.5-10.1); Creatinine, Blood 1.12 mg/dL (0.40-1.00); Globulin, Blood 3.6 g/dL (2.2-4.0); Thyroid Stimulating Hormone 1.07 uIU/mL (0.360-4.800); Total Protein, Blood 6.2 g/dL (6.4-8.2); Triiodothyronine, Free 1.16 pg/mL (2.18-3.98)
== END | disposition home or self-care (01) ==
LOC: LAB UVN 05:16 → EDSTATUS 12:37
PROVIDERS: Internal Medicine
DX: E55.9 Vitamin D deficiency, unspecified (principal); E53.9 Vitamin B deficiency, unspecified; R53.83 Other fatigue; R73.9 Hyperglycemia, unspecified
CPT/HCPCS: 80053; 82306; 82607; 82746; 83036; 84436; 84443; 84481; 85025

== ENCOUNTER → 2022-09-15 | Outpatient (CLI) | payer MEDICARE, OTHER ==
[2022-09-15 16:20] LABS: Source, Urine Clean Catch
[2022-09-15 16:31] LABS: Appearance, Urine Hazy (Clear); Bilirubin, Urine Neg (Neg); Blood, Urine 2+ (Neg); Color, Urine Yellow (P-Yellow); Glucose Qualitative, Urine Neg (Neg); Ketones, Urine Neg (Neg); Leukocyte Esterase, Urine 3+ (Neg); Nitrite, Urine Neg (Neg); Protein, Urine 2+ (Neg); Urobilinogen, Urine NORM (Normal)
[2022-09-15 17:15] LABS: Bacteria Many /hpf; Squamous Epithelial Cells Few /hpf (Few); White Blood Cells, Urine TNTC /hpf (0-5)
== END | disposition home or self-care (01) ==
LOC: EDSTATUS 09:47 → LAB UVN 15:30
PROVIDERS: Internal Medicine
DX: N39.0 Urinary tract infection, site not specified (principal)
CPT/HCPCS: 81001; 87077; 87086; 87186

== ENCOUNTER 2024-01-31 12:15 | Inpatient (IN) | payer MEDICARE, OTHER ==
[~2024-01-31] VITALS: Ht 162.6 cm; Wt 90.0 kg
[2024-01-31] MEDS ORDERED: FentaNYL Citrate 50 MCG/ML 2 ML Injection IV ONE (13:35)
[2024-01-31] MEDS ORDERED: Prochlorperazine Edisylate 10 mg Vial IV ONE (13:35)
[2024-01-31 13:51] LABS: BASOPHILS ABSOLUTE AUTO 0.02 K/mm3 (0.00-0.23); BASOPHILS PERCENT AUTO 0 % (0-2); EOSINOPHILS ABSOLUTE AUTO 0.11 K/mm3 (0.00-0.68); EOSINOPHILS PERCENT AUTO 1 % (0-6); Hematocrit 44.3 % (33.0-51.0); Hemoglobin 14.6 g/dL (11.5-16.0); IMMATURE GRAN ABSOLUTE AUTO 0.06 K/mm3 (0.00-0.10); IMMATURE GRAN PERCENT AUTO 1 % (0-1); LYMPHOCYTES ABSOLUTE AUTO 1.94 K/mm3 (0.84-5.20); LYMPHOCYTES PERCENT AUTO 18 % (21-46); MONOCYTES ABSOLUTE AUTO 1.16 K/mm3 (0.16-1.47); MONOCYTES PERCENT AUTO 11 % (4-13); Mean Corpuscular HGB 30.4 pg (26.0-34.0); Mean Corpuscular Volume 92 fL (80-100); Mean Platelet Volume 9.6 fL (9.1-12.4); NEUTROPHILS ABSOLUTE AUTO 7.42 K/mm3 (1.96-9.15); NEUTROPHILS PERCENT AUTO 69 % (41-73); Platelet Count 245 K/mm3 (150-400); RDW Coefficient Variation 13.3 % (11.7-14.2); White Blood Cell Count 10.71 K/mm3 (4.00-11.30)
[2024-01-31 14:04] LABS: Albumin, Blood 2.8 g/dL (3.4-5.0); Albumin/Globulin Ratio 0.6 (0.8-1.8); Bilirubin, Total 0.5 mg/dL (0.1-1.0); Bun/Creatinine Ratio 13.7 (12.0-20.0); Calcium, Blood 9.1 mg/dL (8.5-10.1); Creatinine, Blood 0.95 mg/dL (0.40-1.00); Globulin, Blood 4.9 g/dL (2.2-4.0); Potassium, Blood 4.3 mmol/L (3.5-5.5); Total Protein, Blood 7.7 g/dL (6.4-8.2)
[2024-01-31] MEDS ORDERED: NS 1,000 ML IV SCH (15:10)
[2024-01-31] MEDS ORDERED: Piperacillin/Tazobactam Sod 3.375 GM in NS 100 ML IV ONE (15:10)
[2024-01-31 16:55] LABS: Source, Urine Straight Cath
[2024-01-31] MEDS ORDERED: Lactated Ringer's 1,000 ML IV SCH (17:00)
[2024-01-31] MEDS ORDERED: Acetaminophen 325 MG TABLET PO PRN (17:00)
[2024-01-31 17:06] LABS: Appearance, Urine Hazy (Clear); Bilirubin, Urine Neg (Neg); Blood, Urine 2+ (Neg); Color, Urine Yellow (P-Yellow); Glucose Qualitative, Urine Neg (Neg); Ketones, Urine Neg (Neg); Leukocyte Esterase, Urine 3+ (Neg); Nitrite, Urine Neg (Neg); Protein, Urine 2+ (Neg); Urobilinogen, Urine NORM (Normal)
[2024-01-31 17:19] LABS: Bacteria Many /hpf; Squamous Epithelial Cells Rare /hpf (Few); White Blood Cells, Urine TNTC /hpf (0-5)
[2024-01-31 17:20] LABS: Mucus Light (0-Heavy); Transitional Epithelial Cells Rare /hpf (0-Rare)
[2024-01-31 18:10] VITALS: BP 140/80
--- NOTE | 2024-01-31 19:24 | NUR ---
ADMISSION NOTE: PATIENT ARRIVES TO ROOM AT 1805 VIA GURNEY FROM ER FOR DX'S OF ACUTE CHOLECYSTITIS. PATIENT TRANSFERRED TO BED c 3 MAX ASSIST USING SLIDER SHEET. PATIENT ORIENTATED TO ROOM AND CALL SYSTEM. PATIENT ADMISSION, MEDRIC AND SKIN ASSESSMENT c 2 RN'S VERIFIED COMPLETED. PATIENT A/OX3, CALM, PLEASANT AND COOPERATIVE c CARE. VISIBLE TREMORS TO BUE'S. PATIENT CURRENTLY ON 2L O2 VIA NC c SPO2 ABOVE 90%, DENIES SOB, N/V, DIZZINESS, CP/PRESSURE. PATIENT REPORTS PAIN 2/10 TO R SIDE ABDOMEN. PATIENT INCONTINENT OF BOWEL/BLADDER, PUREWICK SYSTEM AND ATTENDS IN PLACED. SCD'S IN PLACED TO BLE'S, TOLERATING WELL. PATIENT HAS PIV TO L WRIST INFUSING NS AT 100 MLS/HR. BED ALARM ON FOR SAFETY. CALL LIGHT IN REACH.
[2024-01-31 19:34] VITALS: BP 122/67
[2024-01-31] MEDS ORDERED: Lactobacil 2-S.Thermo-Bifido 1 1 Cap PO SCH (21:00)
[2024-02-01] MEDS ORDERED: Ampicillin Sod/Sulbactam Sod 3 GM in NS 100 ML IV SCH
[2024-02-01 04:29] VITALS: BP 133/65
--- NOTE | 2024-02-01 04:39 | NUR ---
SHIFT SUMMARY VSS. PT SLEPT WELL T/O THE NIGHT. DENIES N/V T/O THE NIGHT. DENIED NEEDING PAIN MEDICATION. HAS BEEN NPO SINCE 0000 IN ANTICIPATION FOR SURGERY TODAY. IVF INFUSING. PUREWICK REMAINS IN PLACE. NO ACUTE EVENTS NOTED T/O THE NIGHT.
[2024-02-01 04:47] LABS: BASOPHILS ABSOLUTE AUTO 0.03 K/mm3 (0.00-0.23); BASOPHILS PERCENT AUTO 0 % (0-2); EOSINOPHILS PERCENT AUTO 2 % (0-6); Hematocrit 39.4 % (33.0-51.0); Hemoglobin 12.9 g/dL (11.5-16.0); IMMATURE GRAN ABSOLUTE AUTO 0.06 K/mm3 (0.00-0.10); IMMATURE GRAN PERCENT AUTO 1 % (0-1); LYMPHOCYTES ABSOLUTE AUTO 2.42 K/mm3 (0.84-5.20); LYMPHOCYTES PERCENT AUTO 24 % (21-46); MONOCYTES ABSOLUTE AUTO 0.96 K/mm3 (0.16-1.47); MONOCYTES PERCENT AUTO 10 % (4-13); Mean Corpuscular HGB 30.5 pg (26.0-34.0); Mean Corpuscular HGB Conc 32.7 g/dL (31.5-36.5); Mean Corpuscular Volume 93 fL (80-100); Mean Platelet Volume 10.1 fL (9.1-12.4); NEUTROPHILS ABSOLUTE AUTO 6.38 K/mm3 (1.96-9.15); NEUTROPHILS PERCENT AUTO 63 % (41-73); Platelet Count 209 K/mm3 (150-400); RDW Coefficient Variation 13.6 % (11.7-14.2); RDW Standard Deviation 46.5 fL (35.1-46.3); Red Blood Cell Count 4.23 M/mm3 (3.80-5.20); White Blood Cell Count 10.05 K/mm3 (4.00-11.30)
[2024-02-01 05:24] LABS: Bun/Creatinine Ratio 12.2 (12.0-20.0); Calcium, Blood 8.3 mg/dL (8.5-10.1); Creatinine, Blood 0.98 mg/dL (0.40-1.00); Potassium, Blood 4.1 mmol/L (3.5-5.5)
[2024-02-01 07:32] VITALS: BP 135/73
[2024-02-01] MEDS ORDERED: FentaNYL Citrate 50 MCG/ML 2 ML Injection IV PRN (10:45)
[2024-02-01] MEDS ORDERED: FentaNYL Citrate 50 MCG/ML 2 ML Injection IV SCH (12:00)
[2024-02-01 15:20] VITALS: BP 128/77
--- NOTE | 2024-02-01 17:16 | NUR ---
SHIFT SUMMARY ACUTE MING. PT INTERMITTENTLY PAINFUL DURING SHIFT. HESITANT TO TAKE MEDICATIONS BUT IS AGREEABLE AND PAIN IMPROVED WITH SMALLER DOSING. PT ANXIOUS ABOUT SURGERY TOMORROW. SPOUSE AT BEDSIDE IS SUPPORTIVE AND ENCOURAGING. PLAN IS FOR PATIENT TO BE NPO AT MIDNIGHT FOR POSSIBLE SURGERY TOMORROW. PT AND SPOUSE AGREEABLE. NO NAUSEA AT THIS TIME.
[2024-02-01 19:43] VITALS: BP 125/72
--- NOTE | 2024-02-01 22:00 | NUR ---
PT REPORTING SOME ANXIETY AND IS UNABLE TO SLEEP. PT REPORTS TAKING A MEDICATION AT BEDTIME AT BASELINE THAT HELPS HER SLEEP. CONSULTED W/ DR. STEPHENS, ORDER FOR PANFILO TOMASVED.
[2024-02-01] MEDS ORDERED: Diazepam 5 MG Tab PO PRN (22:10)
[2024-02-02] VITALS (15 sets, daily range): BP systolic 116–142; BP diastolic 68–82
--- NOTE | 2024-02-02 04:35 | NUR ---
SHIFT SUMMARY PT IS A/OX3-4, RESTED MOST OF NIGHT. TREATED FOR PAIN PER EMAR PRN W/ TOLERABLE RESULTS, PT REPORTS MINIMAL PAIN. VSS. NPO SINCE 0000. NO INCREASE IN ABD DISTENTION NOTED. PT VOIDING W/ PUREWICK IN PLACE. SURGERY PLANNED FOR AM. CALL LIGHT IN REACH.
[2024-02-02] MEDS ORDERED: Bupivacaine 0.5% HCl 5 MG/ML 30MLVIAL ONE (07:37)
[2024-02-02] MEDS ORDERED: FentaNYL Citrate 50 MCG/ML 2 ML Injection ONE (08:30)
[2024-02-02] MEDS ORDERED: propofoL 20 ML IV ONE (08:30)
[2024-02-02] MEDS ORDERED: Sugammadex Sodium 200 MG/2ML SDV (100 MG/ML) ONE (08:30)
[2024-02-02] MEDS ORDERED: Rocuronium Bromide 10 MG/ML 5ML Injection IV ONE (08:31)
[2024-02-02] MEDS ORDERED: DiphenhydrAMINE HCl 50 MG/ML 1ML Vial ONE (08:31)
[2024-02-02] MEDS ORDERED: Phenylephrine HCl 100 MCG/ML-NS 10MLSYR (1MG/10ML) ONE (08:31)
[2024-02-02] MEDS ORDERED: Ketorolac Tromethamine 30mg Vial ONE (08:31)
[2024-02-02] MEDS ORDERED: Ondansetron HCl 2 MG / ML 2ML Vial ONE (08:31)
[2024-02-02] MEDS ORDERED: Dexamethasone Sod Phos 10 MG/ML 1ML VIAL ONE (08:31)
[2024-02-02] MEDS ORDERED: Lidocaine HCl 2% 20 ML MDV ONE (08:31)
[2024-02-02] MEDS ORDERED: HYDROmorphone HCl/Pf 1MG SYR ONE (08:57)
--- NOTE | 2024-02-02 09:09 | NUR ---
02/02/24 0909 Uzma Elmore PATIENT ON SCHEDULED ANTIBIOTICS, NO INTRAOPERATIVE ANTIBIOTICS ORDERED
[2024-02-02] MEDS ORDERED: HYDROcodone 5-APAP 325 TAB PO PRN (17:00)
--- NOTE | 2024-02-02 17:18 | NUR ---
SHIFT SUMMARY PT S/P LAP MING. 3 INCISION SITES TO ABD WITH GAUZE AND TEGADERM, CDI. 4TH INCISION SITE WITH JOSE ANTONIO DRAIN, DRAINING SS FLUID WITH BULB COMPRESSED. PT VERY FATIGUED POST SURGERY. PT HAS BEEN SLEEPING AND IS WITHDRAWN. SHE RESPONDS TO VOICE AND PAIN. PT ON 4 LITERS O2 AND CONTINUOUS PULSE OX. O2 WNL. PUREWICK IN PLACE AND SCD'S ON. PT REFUSES TO WEAR DNR BAND SO PURPLE BAND DISPLAYED ON DOOR FRAME. VSS.
[2024-02-02] MEDS ORDERED: Ondansetron 4 MG SoluTab MM PRN (17:40)
[2024-02-02] MEDS ORDERED: Zolpidem Tartrate 5 MG Tab PO PRN (17:45)
[2024-02-02] MEDS ORDERED: Gabapentin 300 MG Cap PO SCH (18:00)
[2024-02-02] MEDS ORDERED: LORazepam 2 MG/ML 1ML Injection IV ONE (19:00)
[2024-02-02] MEDS ORDERED: Apixaban 5 MG Tab PO SCH (21:00)
[2024-02-02] MEDS ORDERED: LamoTRIgine 100 MG Tab PO SCH (21:00)
[2024-02-02] MEDS ORDERED: LORazepam 2 MG/ML 1ML Injection IV PRN (22:25)
[2024-02-03 00:12] VITALS: BP 122/80
[2024-02-03 02:57] VITALS: BP 122/72
--- NOTE | 2024-02-03 04:42 | NUR ---
SHIFT SUMMARY PATIENT REMAINED IN BED ALL NIGHT SHE IS NON AMBULATORY. HER PUL OX ALARMED DURING THE NIGHT WHEN HER HERAT RATE DROPPED BELOW 50 BPM SHE WAS CAUTIOUS WITH ALL ORAL MEDS I GAVE HER. JOSE ANTONIO WAS EMPITED OF 70 ML AT HS. URINE WICKING SYSTEM KEPT HER DRY ALL NIGHT.
[2024-02-03] MEDS ORDERED: Liothyronine Sodium 5 MCG Tab PO SCH (06:00)
[2024-02-03] MEDS ORDERED: Levothyroxine Sodium 0.112 MG Tab PO SCH (06:00)
[2024-02-03 07:36] VITALS: BP 113/64
[2024-02-03 08:09] LABS: Hematocrit 37.1 % (33.0-51.0); Hemoglobin 12.1 g/dL (11.5-16.0); Mean Corpuscular HGB 29.9 pg (26.0-34.0); Mean Corpuscular HGB Conc 32.6 g/dL (31.5-36.5); Mean Corpuscular Volume 92 fL (80-100); Mean Platelet Volume 9.3 fL (9.1-12.4); Platelet Count 251 K/mm3 (150-400); RDW Coefficient Variation 12.7 % (11.7-14.2); RDW Standard Deviation 43.3 fL (35.1-46.3); Red Blood Cell Count 4.05 M/mm3 (3.80-5.20); White Blood Cell Count 7.08 K/mm3 (4.00-11.30)
[2024-02-03] MEDS ORDERED: Citalopram Hydrobromide 20 MG Tab PO SCH (09:00)
[2024-02-03] MEDS ORDERED: Gabapentin 300 MG Cap PO SCH (09:00)
[2024-02-03] MEDS ORDERED: Cholecalciferol 1000 Unit Tablet (=25MCG) PO SCH (09:00)
[2024-02-03] MEDS ORDERED: Polyethylene Glycol 3350 17 gm PO PRN (09:40)
[2024-02-03] MEDS ORDERED: Docusate Sodium 100 MG Cap PO SCH (10:00)
[2024-02-03 14:17] VITALS: BP 99/60
--- NOTE | 2024-02-03 16:01 | NUR ---
DR. KEYS ROUNDED NOTIFIED THAT LAST BP WAS LOW NORMAL AND PT HAS HAD LOW URINE OUTPUT AND LOW PO INTAKE. PT HAS BEEN ENCOURAGED TO TAKE PO. PT'S IS AT THE BEDSIDE PROVIDING ENCOURAGEMENT.
--- NOTE | 2024-02-03 17:40 | NUR ---
CALL PLACED TO DR. OCASIO THAT PT NOT ON TELE. PER DR. OCASIO DC ORDER FOR EKG.
--- NOTE | 2024-02-03 19:27 | NUR ---
BEDSIDE REPORT GIVEN TO FRANCIS MENDEZ RN. PT AND PARTICIPATED WITH BEDSIDE REPORT.
[2024-02-03 19:49] VITALS: BP 107/69
[2024-02-04 03:51] VITALS: BP 134/64
[2024-02-04 04:03] LABS: BASOPHILS ABSOLUTE AUTO 0.03 K/mm3 (0.00-0.23); BASOPHILS PERCENT AUTO 0 % (0-2); EOSINOPHILS ABSOLUTE AUTO 0.08 K/mm3 (0.00-0.68); EOSINOPHILS PERCENT AUTO 1 % (0-6); Hemoglobin 11.8 g/dL (11.5-16.0); IMMATURE GRAN ABSOLUTE AUTO 0.03 K/mm3 (0.00-0.10); IMMATURE GRAN PERCENT AUTO 0 % (0-1); LYMPHOCYTES ABSOLUTE AUTO 2.07 K/mm3 (0.84-5.20); LYMPHOCYTES PERCENT AUTO 29 % (21-46); MONOCYTES ABSOLUTE AUTO 0.55 K/mm3 (0.16-1.47); MONOCYTES PERCENT AUTO 8 % (4-13); Mean Corpuscular HGB Conc 32.8 g/dL (31.5-36.5); Mean Corpuscular Volume 92 fL (80-100); Mean Platelet Volume 9.2 fL (9.1-12.4); NEUTROPHILS ABSOLUTE AUTO 4.27 K/mm3 (1.96-9.15); NEUTROPHILS PERCENT AUTO 61 % (41-73); Platelet Count 245 K/mm3 (150-400); RDW Coefficient Variation 13.2 % (11.7-14.2); RDW Standard Deviation 44.8 fL (35.1-46.3); Red Blood Cell Count 3.93 M/mm3 (3.80-5.20); White Blood Cell Count 7.03 K/mm3 (4.00-11.30)
[2024-02-04 04:30] LABS: Bun/Creatinine Ratio 13.5 (12.0-20.0); Creatinine, Blood 1.26 mg/dL (0.40-1.00); Potassium, Blood 3.7 mmol/L (3.5-5.5)
--- NOTE | 2024-02-04 05:05 | NUR ---
SUMMARY- PT PAIN HAS BEEN MANAGED WELL. PT DENIES N/V. PT ISSUE HAS BEEN LOOSE BMS. PT HAS HAD TWO NOTED LOOSE BM'S. PT IS VOIDING WELL VIA PUREWICK DEVICE. PT IS DRINKING PO FLUIDS. PT DRESSINGS ARE C/D/I. CALL LIGHT IN REACH.
[2024-02-04 07:25] VITALS: BP 126/72
--- NOTE | 2024-02-04 08:00 | NUR ---
DR. AMARJIT DOHERTY, DISCUSSED ELEVATED CREATININE
--- NOTE | 2024-02-04 08:15 | NUR ---
DR. MCKEON ROUNDED AND REMOVED JOSE ANTONIO DRAIN.
--- NOTE | 2024-02-04 10:35 | NUR ---
O2 OFF AT THIS TIME. PT IS MAINTAINING 90-94% ON RA. PT ENCOURAGED TO USE HER INCENTIVE SPIROMETER.
--- NOTE | 2024-02-04 10:50 | NUR ---
CONTINUED NEED FOR O2 PT WAS TAKEN OFF 2L O2 VIA NC WHILE AWAKE. O2 SATURATIONS REMAINED AT 90-94%. PT BEGAN TO FALL ASLEEP AND O2 SATURATION DROPPED TO 86-87% ON RA, WAVEFORM WAS CONSISTANT. O2 PLACED BACK ON, ATTEMPTED 1L O2, NO IMPROVEMENT IN SATURATION LEVEL, INCREASED TO 2L O2 VIA NC AND O2 SATURATION INCREASED TO GREATER THAN 90%. PT STATES SHE HAS BEEN USING HER INCENTIVE SPIROMETER. BUTTON AND BUCKLE MAKER ELIZABETH SIMENTAL RN NOTIFIED, ELIZABETH NOTIFIED DR. OCASIO.
[2024-02-04] MEDS ORDERED: REMERON1510 PO (11:03)
[2024-02-04] MEDS ORDERED: KLAYESTA15 GM TOP (11:03)
[2024-02-04] MEDS ORDERED: DODEX1000 MCG/3 INJ (11:03)
[2024-02-04] MEDS ORDERED: XANAX0.25 MG PO (11:03)
[2024-02-04] MEDS ORDERED: QUETIAPINE FUMA25 MG PO (11:05)
[2024-02-04] MEDS ORDERED: RISP.5 PO (11:05)
[2024-02-04] MEDS ORDERED: ALPR.25 PO (11:05)
[2024-02-04] MEDS ORDERED: PHENA200 PO (11:06)
[2024-02-04] MEDS ORDERED: Acetaminophen650 M1 PO (11:06)
[2024-02-04] MEDS ORDERED: MIRALAX17 GM PO (11:06)
[2024-02-04] MEDS ORDERED: Celexa20 MG PO (13:24)
[2024-02-04] MEDS ORDERED: GABA300 PO ×2 (13:29→13:30)
[2024-02-04] MEDS ORDERED: HYDR1TAB94 PO (13:38)
--- NOTE | 2024-02-04 14:30 | NUR ---
REPORT CALLED TO RICCO AT [facility]. RICCO NOTIFIED THAT TRANSPORT PLANNED FOR 1529.
[2024-02-04 14:43] VITALS: BP 129/67
--- NOTE | 2024-02-04 16:42 | NUR ---
DISCHARGE PT DISCHARGED WITH [facility] IN AT APPROXIMATELY 1617. RICCO AT [facility] NOTIFIED WHEN PT DISCHARGED DISCHARGED.
== END 2024-02-04 16:00 | disposition home or self-care (01) | DRG 418 ==
LOC: ER 12:15 → SURS 12:16
PROVIDERS: Emergency Medicine; Hospitalist; Student in an Organized Health Care Education/Training Program; Surgery; ADMIT Internal Medicine
PROC: 0FT44ZZ Resection of Gallbladder, Percutaneous Endoscopic Approach (ICD-10-PCS; principal; 2024-02-02 08:00)
DX: K80.00 Calculus of gallbladder with acute cholecystitis without obstruction (principal); N39.0 Urinary tract infection, site not specified; Z66 Do not resuscitate; F32.A Depression, unspecified; E03.9 Hypothyroidism, unspecified; N18.9 Chronic kidney disease, unspecified; G93.32 Myalgic encephalomyelitis/chronic fatigue syndrome; Z86.718 Personal history of other venous thrombosis and embolism; Z86.711 Personal history of pulmonary embolism; Z90.49 Acquired absence of other specified parts of digestive tract; Z79.890 Hormone replacement therapy
CPT/HCPCS: 36415; 74177; 76705; 80048; 80053; 81001; 82306; 83690; 84443; 85025; 85027; 87077; 87086; 87186; 88304; 93005; 93010; 94760; 94762; 96361; 96365-59; 96366; 96367; 96375; 96376; 99285-25; A9270; C1729; G0378; J0295; J0780; J1100; J1170; J1200; J1885; J2371; J2405; J2543; J2704; J3010; J7030; J7120; P9612; Q9967

== ENCOUNTER 2024-06-03 12:56 | Day surgery (SDC) | payer MEDICARE, OTHER ==
[~2024-06-03] VITALS: Ht 162.6 cm; Wt 90.9 kg
[~2024-06-03 12:56] MED LIST changes: +ALPR.25 PO; +Acetaminophen650 M1 PO; +Balanced Salt Epinephrine Irrigation Solution 500 mL IR SCH; +Celexa20 MG PO; +DODEX1000 MCG/3 INJ; +KLAYESTA15 GM TOP; +Lidocaine HCl/Pf 1% 5 ML VIAL XX SCH; +MIRALAX17 GM PO; +Moxifloxacin HCL 0.5 MG/0.1 ML 0.4MLSYR RIGHTEYE SCH; +NS 500 ML IV ONE; +PHENA200 PO; +PHENYLEPHRINE\\TROPICAMIDE\\TETRACAINE OPHTHALMIC DILATING SOLN RIGHTEYE PRN; +Povidone-Iodine 450 DROP/30 ML Solution ONE; +Povidone-Iodine 450 DROP/30 ML Solution RIGHTEYE SCH; +QUETIAPINE FUMA25 MG PO; +REMERON1510 PO; +RISP.5 PO; +Tetracaine HCl/Pf 0.5% Opth Soln 4 ml ONE; +Triamcinolone Inj Susp 40 MG / ML 1ML Vial INJ SCH; +Triamcinolone Inj Susp 40 MG / ML 1ML Vial ONE; +XANAX0.25 MG PO
[2024-06-03] MEDS ORDERED: NS 500 ML IV ONE (13:52)
[2024-06-03] MEDS ORDERED: THERA-D2000 UNIT PO (13:57)
[2024-06-03] MEDS ORDERED: SENNA LAXATIVE8.6 MG PO (13:57)
[2024-06-03] MEDS ORDERED: MAGNESIUM OXID500 MG PO (13:58)
--- NOTE | 2024-06-03 14:23 | NUR ---
06/03/24 1423 Laurel Shirley IN AT 1351 JACQUELINE IN AT 1352 CALL LIGHT AT BEDSIDE
[2024-06-03] MEDS ORDERED: Midazolam HCl 1MG / ML 2ML Vial ONE (14:41)
[2024-06-03 15:32] VITALS: BP 111/82
== END 2024-06-03 15:50 | disposition home or self-care (01) ==
LOC: ORSCSDS 12:56
PROVIDERS: Ophthalmology
PROC: 08RJ3JZ Replacement of Right Lens with Synthetic Substitute, Percutaneous Approach (ICD-10-PCS; principal; 2024-06-03 14:30)
DX: H25.811 Combined forms of age-related cataract, right eye (principal); Z86.711 Personal history of pulmonary embolism; R25.1 Tremor, unspecified; E03.9 Hypothyroidism, unspecified; F41.9 Anxiety disorder, unspecified; E66.9 Obesity, unspecified; Z68.34 Body mass index [BMI] 34.0-34.9, adult; Z86.718 Personal history of other venous thrombosis and embolism; F32.A Depression, unspecified; Z79.01 Long term (current) use of anticoagulants; Z79.899 Other long term (current) drug therapy
CPT/HCPCS: J2250; J3301; J7040; V2632